=== PATIENT | female | born 1950 | race Caucasian/White ===

== ENCOUNTER → 2018-06-06 | Outpatient (CLI) | payer OTHER, MEDICARE ==
[2017-07-07 11:12] VITALS: BMI 39.7
[~2018-06-06] MED LIST: ASCO-182 PO; ASPI-1441 PO; CALC1TAB46 PO; CALC600T63 PO; CHOL10005 PO; DIAZ-308 PO; ESTR1 PV; FURO-45 PO; GLUC500C29 PO; IBUP-56 PO; IBUP600T22 PO; LACT1CAP6 PO; LOR5/325 PO; MAGN250T26 PO; MAGNESIUM PO; MULT-1319 PO; MULT1CAP59 PO; NEBI20TA4 PO; OMEG500C7 PO; RIV10 PO; RIVA20TA PO; SELE200T32 PO; TUM500 PO; VALS-25 PO; VALS1TAB75 PO; VIT D PO; VITA-175 PO; VITAMIN E PO; WARF-12 PO
--- NOTE | 2018-06-06 13:58 | RADIOLOGY IMAGING REPORT ---
FAC[place] [facility] [place]IENT NAME: MARCELLA MCFARLADN : [id number] MR: [id number] V: [id number] EXAM DATE: ORDERING PHYSICIAN: DIANE ZARCO TECHNOLOGIST: Mary Kate Hammer PROCEDURE:BILATERAL DIGITAL SCREENING MAMMOGRAM WITH CAD ASSISTED INTERPRETATION & 3D TOMOSYNTHESIS COMPARISON:Prior mammograms 09/03/15, 03/10/14, 10/17/12 & 08/03/11. INDICATIONS:screening FINDINGS: Breast parenchyma is predominantly fatty. There are no mammographic findings concerning for malignancy. No significant change from priors. DIAGNOSTIC CATEGORY 1--NEGATIVE. RECOMMENDATIONS: ROUTINE MAMMOGRAM AND CLINICAL EVALUATION IN 1 YEAR. IMPRESSION: BIRADS 1: Negative. Dictated by: Milton Soto on 06/06/2018 at 13:16 Transcribed by: JUAN on 06/06/2018 at 13:53 Approved by: Milton Soto on 06/06/2018 at 13:57 [facility]
== END ==
LOC: MAMO 01:53
PROVIDERS: ATTEND Nurse Practitioner Psychiatric/Mental Health
DX: Z12.31 Encounter for screening mammogram for malignant neoplasm of breast (principal)
CPT/HCPCS: 77063; 77067